=== PATIENT | female | born 1975 | race Two or more races ===

== ENCOUNTER 2025-05-29 09:22 | Outpatient (CLI) | payer OTHER ==
[~2025-05-29 09:22] MED LIST: BUDESONIDE0.5 GM; FLOVENT DI50 MCG/DIS; PROMETHAZI6.25 MG/5; RELAGESIC TABLE1 TAB
== END 2025-05-29 09:24 | disposition home or self-care (01) ==
LOC: SONOGRAMA 09:22
PROVIDERS: ATTEND Pathology Anatomic Pathology & Clinical Pathology
DX: D34 Benign neoplasm of thyroid gland (principal); E04.1 Nontoxic single thyroid nodule; E06.3 Autoimmune thyroiditis